=== PATIENT | male | born 1940 | race Caucasian/White ===

== ENCOUNTER 2016-08-15 08:49 | Observation (INO) | payer OTHER ==
[~2016-08-15 08:49] MED LIST: Aspirin E.C. PO; CENTRUM SILVER1 EAC3 PO; CIPRO500 MG PO; CIPROFLOXACIN500 M1 PO; Centrum Silver,Certa PO; DILTIAZEM 24HR240 MG PO; ENDOCET 5-3251 EACH PO; FIBER TABS625 MG PO; FIBERCON625 MG PO; FLOMAX0.4 MG PO; FUROSEMIDE40 MG PO; LIPITOR40 MG PO; NAPROXEN500 MG PO; ONE-A-DAY MEN'1 EAC4 PO; PERCOCET 5/31 TABLET PO; PRADAXA75 MG PO; Protonix PO; SPIRIVA1 INHALATI IH; SYNTHROID125 MCG PO; SYNTHROID137 MCG PO; TOPROL XL25 MG PO; TOPROL XL6.25 MG PO; TYLENOL EXTRA500 MG PO; VITAMIN D32000 UNI1 PO; XARELTO10 MG PO; ZESTRIL,PRINIVIL5 MG PO; ZESTRIL2.5 MG PO; ZOFRAN4 MG PO; [UNRECOGNIZED DRUG - OTHER] IV; [UNRECOGNIZED DRUG - OTHER] PO
[2016-08-15 09:27] LABS: HEMATOCRIT 50.9 % (38.0-50.0); MCH 31.6 PG (29.0-34.0); MCHC 34.2 G/DL (30.0-36.0); MCV 92.5 FL (86-99); MEAN PLAT.VOLUME 9.9 uM^3 (9.0-12.4); PLATELET COUNT 197 K/uL (156-360); RBC DIS.WIDTH-CV 14.5 % (11.8-14.6); RBC DIS.WIDTH-SD 49.4 % (39-53)
[2016-08-15 09:38] LABS: INTER. NORMALIZED RATIO 1.1; PROTHROMBIN TIME 10.9 (9.2-11.2)
[2016-08-15 13:52] VITALS: BP 148/72
[2016-08-15 16:03] VITALS: BP 118/58
[2016-08-16 04:02] VITALS: BP 134/60
[2016-08-16 05:34] LABS: HEMATOCRIT 47.3 % (38.0-50.0); MCH 30.8 PG (29.0-34.0); MCV 93.5 FL (86-99); MEAN PLAT.VOLUME 9.8 uM^3 (9.0-12.4); PLATELET COUNT 172 K/uL (156-360); RBC DIS.WIDTH-CV 14.5 % (11.8-14.6); RBC DIS.WIDTH-SD 50.4 % (39-53); RED BLOOD COUNT 5.06 M/uL (4.00-5.50); WHITE BLOOD COUNT 7.4 K/uL (4.1-10.2)
[2016-08-16 07:35] VITALS: BP 110/56
[2016-08-16 16:00] VITALS: BP 147/67
== END 2016-08-16 17:26 | disposition home or self-care (01) ==
LOC: OPR 08:49 → EDSTATUS 09:00 → OPR 09:00 → 2SOUTH 12:03 → 5WEST 12:03 → 2SOUTH 12:03 → 5WEST 13:31
PROVIDERS: Internal Medicine; Radiology Diagnostic Radiology
PROC: 0BBF3ZX Excision of Right Lower Lung Lobe, Percutaneous Approach, Diagnostic (ICD-10-PCS; principal; 2016-08-15)
PROC: BB241ZZ Computerized Tomography (CT Scan) of Bilateral Lungs using Low Osmolar Contrast (ICD-10-PCS; principal; 2016-08-15)
PROC: 0W9900Z Drainage of Right Pleural Cavity with Drainage Device, Open Approach (ICD-10-PCS; principal; 2016-08-15)
DX: J95.811 Postprocedural pneumothorax (principal); C34.31 Malignant neoplasm of lower lobe, right bronchus or lung; J44.9 Chronic obstructive pulmonary disease, unspecified; I25.10 Atherosclerotic heart disease of native coronary artery without angina pectoris; Z95.5 Presence of coronary angioplasty implant and graft; G47.30 Sleep apnea, unspecified; I10 Essential (primary) hypertension; F17.210 Nicotine dependence, cigarettes, uncomplicated; R04.89 Hemorrhage from other sites in respiratory passages
CPT/HCPCS: 71010; 77012; 85027; 85610; 85730; 88305; 88341 TC; 88342 TC; 94640; 94640 76; 94760; 94799; 99202; C1729; C1769; G0378; J3010

== ENCOUNTER 2016-09-22 09:21 | Day surgery (SDC) | payer OTHER ==
[~2016-09-22] VITALS: Ht 182.9 cm; Wt 101.0 kg
[2016-09-22 10:02] VITALS: BP 133/67
[2016-09-22 10:03] LABS: EOSINOPHIL (%) 1.5 % (0-5); EOSINOPHIL COUNT 0.1 K/uL (0-0.3); HEMATOCRIT 54.1 % (38.0-50.0); IMMATURE GRANULOCYTE (%) 0.4 % (0.0-0.7); INSTRUMENT ABS NEUTROPHIL CT 4.8 K/uL; LYMPHOCYTE COUNT 1.2 K/uL (1.0-2.8); MCH 30.9 PG (29.0-34.0); MCHC 33.1 G/DL (30.0-36.0); MCV 93.4 FL (86-99); MEAN PLAT.VOLUME 9.9 uM^3 (9.0-12.4); MONOCYTE (%) 8.9 % (3-12); MONOCYTE COUNT 0.6 K/uL (0-0.8); NEUTROPHIL (%) 71.6 % (45-76); NEUTROPHIL COUNT 4.8 K/uL (1.8-6.4); PLATELET COUNT 211 K/uL (156-360); RBC DIS.WIDTH-CV 14.2 % (11.8-14.6); RBC DIS.WIDTH-SD 49.1 % (39-53); RED BLOOD COUNT 5.79 M/uL (4.00-5.50); WHITE BLOOD COUNT 6.8 K/uL (4.1-10.2)
[2016-09-22 10:33] LABS: ALKALINE PHOSPHATASE 89 IU/L (3-129); ANION GAP 9 MEQ/L (2-14); CHLORIDE 108 MEQ/L (99-109); GFR ESTIMATE (CALCULATED) > 59 mL/min/; GLUCOSE 97 mg/dL (70-99); POTASSIUM 3.9 MEQ/L (3.7-5.4); SAMPLE HEMOLYSIS CHECK 0; SAMPLE ICTERIC CHECK 0; SAMPLE LIPEMIA CHECK 0; SODIUM 140 MEQ/L (136-147); TOTAL BILIRUBIN 0.7 MG/DL (0.0-1.0); UREA NITROGEN (BUN) 14 mg/dL (9-23)
[2016-09-22 10:41] LABS: INTER. NORMALIZED RATIO 1.1; PROTHROMBIN TIME 11.1 (9.2-11.2)
[2016-09-22] MEDS ORDERED: NORCO 5/3251 TABLET PO (14:41)
[2016-09-22] MEDS ORDERED: COLACE100 MG PO (14:41)
[2016-09-22 15:22] VITALS: BP 161/78
[2016-09-22 16:20] VITALS: BP 147/67
== END 2016-09-22 16:40 | disposition home or self-care (01) ==
LOC: SDC 09:21
PROVIDERS: Thoracic Surgery (Cardiothoracic Vascular Surgery)
PROC: 07B74ZX Excision of Thorax Lymphatic, Percutaneous Endoscopic Approach, Diagnostic (ICD-10-PCS; principal; 2016-09-22)
DX: C34.31 Malignant neoplasm of lower lobe, right bronchus or lung (principal); J44.9 Chronic obstructive pulmonary disease, unspecified; F17.210 Nicotine dependence, cigarettes, uncomplicated; I25.10 Atherosclerotic heart disease of native coronary artery without angina pectoris; Z95.5 Presence of coronary angioplasty implant and graft; I48.91 Unspecified atrial fibrillation; E03.9 Hypothyroidism, unspecified; Z82.49 Family history of ischemic heart disease and other diseases of the circulatory system
CPT/HCPCS: 80053; 85025; 85610; 85730; 86900; 86901; 88305; J0330; J0690; J1100; J2405; J2710; J3010

== ENCOUNTER 2016-09-25 07:22 | Emergency (ER) | payer OTHER ==
[~2016-09-25] VITALS: Ht 188 cm; Wt 102.6 kg
[~2016-09-25 07:22] MED LIST changes: +COLACE100 MG PO; +NORCO 5/3251 TABLET PO
[2016-09-25 08:01] LABS: ADD MIUA? YES; BILIRUBIN NEGATIVE; BLOOD MODERATE; COLOR YELLOW ((YELLOW)); GLUCOSE (STRIP) NEGATIVE; KETONES NEGATIVE; LEUKOCYTES SMALL; NITRITE NEGATIVE; PROTEIN (STRIP) NEGATIVE; SPECIFIC GRAVITY 1.014 (1.000-1.030); UROBILINOGEN 0.2 MG/DL (0.2-1.0)
[2016-09-25 08:22] LABS: BACTERIA RARE /HPF; EPITHELIAL CELLS RARE /HPF; HYALINE CASTS 0-5 /LPF; MUCUS TRACE /LPF; RED BLOOD CELLS TNTC /HPF (0-5); UCUL ADDED? NO; WHITE BLOOD CELLS 20-30 /HPF (0-5)
[2016-09-25 08:58] LABS: EOSINOPHIL (%) 1.7 % (0-5); EOSINOPHIL COUNT 0.1 K/uL (0-0.3); HEMATOCRIT 46.3 % (38.0-50.0); IMMATURE GRANULOCYTE (%) 0.6 % (0.0-0.7); IMMATURE GRANULOCYTE COUNT 0.1 K/uL; INSTRUMENT ABS NEUTROPHIL CT 6.4 K/uL; LYMPHOCYTE COUNT 0.9 K/uL (1.0-2.8); MCHC 33.9 G/DL (30.0-36.0); MCV 91.5 FL (86-99); MEAN PLAT.VOLUME 10.4 uM^3 (9.0-12.4); MONOCYTE (%) 10.4 % (3-12); MONOCYTE COUNT 0.9 K/uL (0-0.8); NEUTROPHIL (%) 76.1 % (45-76); NEUTROPHIL COUNT 6.4 K/uL (1.8-6.4); PLATELET COUNT 173 K/uL (156-360); RBC DIS.WIDTH-CV 13.9 % (11.8-14.6); RBC DIS.WIDTH-SD 46.5 % (39-53); RED BLOOD COUNT 5.06 M/uL (4.00-5.50); WHITE BLOOD COUNT 8.4 K/uL (4.1-10.2)
[2016-09-25 09:04] LABS: CHLORIDE 105 mEq/L (99-109); POTASSIUM 3.5 mEq/L (3.7-5.4); SODIUM 138 mEq/L (136-147)
[2016-09-25 09:06] LABS: GLUCOSE 97 mg/dL (70-99)
[2016-09-25 09:07] LABS: ANION GAP 10 MEQ/L (2-14)
[2016-09-25 09:10] LABS: GFR ESTIMATE (CALCULATED) > 59 mL/min/
[2016-09-25 09:11] LABS: UREA NITROGEN (BUN) 12 mg/dL (9-23)
[2016-09-25] MEDS ORDERED: CIPRO500 MG PO (10:17)
[2016-09-25 11:54] VITALS: BP 114/72
== END 2016-09-25 11:55 | disposition home or self-care (01) ==
LOC: EME 07:22
PROVIDERS: Emergency Medicine
PROC: 0T9B70Z Drainage of Bladder with Drainage Device, Via Natural or Artificial Opening (ICD-10-PCS; principal; 2016-09-25)
DX: R33.9 Retention of urine, unspecified (principal); N39.0 Urinary tract infection, site not specified; Z87.442 Personal history of urinary calculi; I25.2 Old myocardial infarction; Z90.49 Acquired absence of other specified parts of digestive tract; F17.200 Nicotine dependence, unspecified, uncomplicated
CPT/HCPCS: 80048; 81003; 85025; 99281; 99284

== ENCOUNTER 2017-04-23 12:06 | Emergency (ER) | payer OTHER ==
[~2017-04-23] VITALS: Ht 182.9 cm; Wt 91.3 kg
[2017-04-23 12:02] LABS: TYPE OF FLUID THORACENTESIS
[~2017-04-23 12:06] MED LIST changes: +BREO ELLIPTA I1 EACH IH; +DOCUSATE SODIU100 MG PO; +MUCINEX600 MG PO; +NICOTINE PATCH1 EAC2 TD; +SPIRIVA RESPIMAT4 GM IH; +TAMSULOSIN HCL0.4 MG PO; +WELLBUTRIN SR150 MG PO; +XOPENEX0.31 MG/3 IH
[2017-04-23 12:18] LABS: APPEARANCE SL. HAZY-YELLOW; BODY FLUID RBC'S 2000 /MM^3 (0-100); BODY FLUID WBC'S 807 /MM^3 (0-500)
[2017-04-23 13:00] LABS: BODY FLUID EOSINOPHILS 0 % (0-25); MONONUCLEAR WBC'S 100 %; POLYNUCLEAR WBC'S 0 % (0-25)
[2017-04-23 13:06] LABS: HEMATOCRIT 45.2 % (38.0-50.0); HEMOGLOBIN 14.2 G/DL (12.5-16.6); MCH 25.6 PG (29.0-34.0); MCHC 31.4 G/DL (30.0-36.0); MCV 81.4 FL (86-99); PLATELET COUNT 295 K/uL (156-360); RBC DIS.WIDTH-CV 19.5 % (11.8-14.6); RBC DIS.WIDTH-SD 55.8 % (39-53); RED BLOOD COUNT 5.55 M/uL (4.00-5.50); WHITE BLOOD COUNT 6.6 K/uL (4.1-10.2)
[2017-04-23 13:18] LABS: CHLORIDE 109 mEq/L (99-109); POTASSIUM 3.9 mEq/L (3.7-5.4); SODIUM 143 mEq/L (136-147)
[2017-04-23 13:19] LABS: GLUCOSE 86 mg/dL (70-99)
[2017-04-23 13:23] LABS: CREATININE 0.9 mg/dL (0.6-1.3); GFR ESTIMATE (CALCULATED) > 59 mL/min/ (58.99-99999)
[2017-04-23 13:24] LABS: UREA NITROGEN (BUN) 12 mg/dL (9-23)
[2017-04-23 13:27] LABS: BODY FLUID GLUCOSE 65 MG/DL; BODY FLUID LDH 168 IU/L; BODY FLUID PROTEIN 3.1 G/DL
[2017-04-23 13:29] LABS: TROP-I INTERPRETATION NEGATIVE; TROPONIN-I 0.11 ng/mL (0.0-0.30)
[2017-04-23 16:21] LABS: TROP-I INTERPRETATION NEGATIVE; TROPONIN-I 0.12 ng/mL (0.0-0.30)
[2017-04-23 18:08] LABS: ALBUMIN 3.6 g/dL (3.2-4.8)
[2017-04-23 18:13] LABS: TOTAL BILIRUBIN 0.9 mg/dL (0.0-1.0)
[2017-04-23 18:14] LABS: ALKALINE PHOSPHATASE 93 IU/L (3-129)
[2017-04-23 18:17] LABS: ALT (GPT) 22 IU/L (3-49); AST (GOT) 18 IU/L (2-34); DIRECT BILIRUBIN 0.5 mg/dL (0.0-0.3)
[2017-04-23 20:38] VITALS: BP 124/69
== END 2017-04-23 20:40 | disposition home or self-care (01) ==
LOC: EME 12:06
PROVIDERS: Internal Medicine Pulmonary Disease; Physician Assistant Medical
PROC: BB4BZZZ Ultrasonography of Pleura (ICD-10-PCS; principal; 2017-04-23)
PROC: 0W993ZZ Drainage of Right Pleural Cavity, Percutaneous Approach (ICD-10-PCS; principal; 2017-04-23)
DX: J90 Pleural effusion, not elsewhere classified (principal); R09.02 Hypoxemia; Z85.118 Personal history of other malignant neoplasm of bronchus and lung; Z99.81 Dependence on supplemental oxygen; J44.9 Chronic obstructive pulmonary disease, unspecified; I25.2 Old myocardial infarction; Z87.442 Personal history of urinary calculi; Z90.49 Acquired absence of other specified parts of digestive tract; Z95.5 Presence of coronary angioplasty implant and graft; F17.200 Nicotine dependence, unspecified, uncomplicated
CPT/HCPCS: 71046; 71275; 76942; 80048; 80076; 82945; 83615 91; 84157; 84484; 85027; 87040; 87070; 87075; 87116; 87205; 87206; 88108; 88305; 89051; 93005; 99281; 99285; J7040

== ENCOUNTER 2017-05-09 09:01 | Inpatient (IN) | payer OTHER ==
[~2017-05-09] VITALS: Ht 193 cm; Wt 101.2 kg
[2017-05-09 10:03] LABS: BASOPHIL (%) 0.2 % (0-1); EOSINOPHIL (%) 0.1 % (0-5); HEMATOCRIT 41.2 % (38.0-50.0); HEMOGLOBIN 13.5 G/DL (12.5-16.6); IMMATURE GRANULOCYTE (%) 0.6 % (0.0-0.7); LYMPHOCYTE (%) 3.8 % (15-42); LYMPHOCYTE COUNT 0.6 K/uL (1.0-2.8); MCH 25.4 PG (29.0-34.0); MCHC 32.8 G/DL (30.0-36.0); MONOCYTE (%) 3.8 % (3-12); MONOCYTE COUNT 0.7 K/uL (0-0.8); NEUTROPHIL (%) 91.5 % (45-76); NEUTROPHIL COUNT 15.6 K/uL (1.8-6.4); PLATELET COUNT 218 K/uL (156-360); RBC DIS.WIDTH-SD 54.6 % (39-53); RED BLOOD COUNT 5.32 M/uL (4.00-5.50)
[2017-05-09 10:04] LABS: MCV 77.4 FL (86-99)
[2017-05-09 10:09] LABS: ALBUMIN 2.9 g/dL (3.2-4.8); CHLORIDE 106 mEq/L (99-109)
[2017-05-09 10:10] LABS: POTASSIUM 4.1 mEq/L (3.7-5.4); SODIUM 138 mEq/L (136-147)
[2017-05-09 10:12] LABS: GLUCOSE 116 mg/dL (70-99); TOTAL PROTEIN 6.5 g/dL (6.4-8.3)
[2017-05-09 10:15] LABS: ALKALINE PHOSPHATASE 114 IU/L (3-129); CREATININE 1.4 mg/dL (0.6-1.3); GFR ESTIMATE (CALCULATED) 52 mL/min/ (58.99-99999)
[2017-05-09 10:17] LABS: AST (GOT) 26 IU/L (2-34); UREA NITROGEN (BUN) 25 mg/dL (9-23)
[2017-05-09 10:18] LABS: ALT (GPT) 39 IU/L (3-49)
[2017-05-09 10:22] LABS: TROP-I INTERPRETATION NEGATIVE; TROPONIN-I 0.12 ng/mL (0.0-0.30)
[2017-05-09 13:22] LABS: APPEARANCE CLOUDY ((CLEAR)); BILIRUBIN NEGATIVE; BLOOD SMALL; COLOR AMBER ((YELLOW)); GLUCOSE (STRIP) 50; KETONES 5; LEUKOCYTES NEGATIVE; NITRITE POSITIVE; PROTEIN (STRIP) 100; SPECIFIC GRAVITY 1.021 (1.000-1.030)
[2017-05-09 13:52] LABS: BACTERIA RARE /HPF; EPITHELIAL CELLS NONE SEEN /HPF; MUCUS TRACE /LPF; UCUL ADDED? YES; WHITE BLOOD CELLS TNTC /HPF (0-5)
[2017-05-09 19:21] LABS: TROP-I INTERPRETATION NEGATIVE; TROPONIN-I 0.13 ng/mL (0.0-0.30)
[2017-05-09 19:42] VITALS: BP 104/57
[2017-05-10 00:27] VITALS: BP 119/69
[2017-05-10 02:58] LABS: TROP-I INTERPRETATION NEGATIVE; TROPONIN-I 0.11 ng/mL (0.0-0.30)
[2017-05-10 03:50] VITALS: BP 117/69
[2017-05-10 06:54] LABS: CHLORIDE 107 MEQ/L (99-109); CREATININE 1.2 MG/DL (0.6-1.3); GFR ESTIMATE (CALCULATED) > 59 mL/min/ (58.99-99999); POTASSIUM 4.7 MEQ/L (3.7-5.4); SODIUM 138 MEQ/L (136-147); UREA NITROGEN (BUN) 28 mg/dL (9-23)
[2017-05-10 06:55] LABS: GLUCOSE 201 mg/dL (70-99)
[2017-05-10 07:05] LABS: HEMATOCRIT 39.6 % (38.0-50.0); HEMOGLOBIN 12.5 G/DL (12.5-16.6); MCH 25.3 PG (29.0-34.0); MCHC 31.6 G/DL (30.0-36.0); RBC DIS.WIDTH-CV 20.2 % (11.8-14.6); RBC DIS.WIDTH-SD 57.5 % (39-53); RED BLOOD COUNT 4.95 M/uL (4.00-5.50); WHITE BLOOD COUNT 13.1 K/uL (4.1-10.2)
[2017-05-10 08:00] LABS: PLAT.SUFFICIENCY ADEQUATE; PLATELET COUNT 225 K/uL (156-360)
[2017-05-10 08:21] VITALS: BP 120/86
[2017-05-10 12:21] VITALS: BP 117/58
[2017-05-10 17:10] VITALS: BP 120/65
[2017-05-10 19:45] VITALS: BP 125/60
[2017-05-11] VITALS (7 sets, daily range): BP systolic 102–136; BP diastolic 53–72
[2017-05-11 05:21] LABS: HEMATOCRIT 40.3 % (38.0-50.0); HEMOGLOBIN 12.3 G/DL (12.5-16.6); MCH 24.4 PG (29.0-34.0); MCHC 30.5 G/DL (30.0-36.0); MCV 79.8 FL (86-99); PLATELET COUNT 240 K/uL (156-360); RBC DIS.WIDTH-CV 19.9 % (11.8-14.6); RBC DIS.WIDTH-SD 56.6 % (39-53); RED BLOOD COUNT 5.05 M/uL (4.00-5.50); WHITE BLOOD COUNT 20.7 K/uL (4.1-10.2)
[2017-05-11 05:54] LABS: CHLORIDE 105 MEQ/L (99-109); CREATININE 0.9 MG/DL (0.6-1.3); GFR ESTIMATE (CALCULATED) > 59 mL/min/ (58.99-99999); GLUCOSE 218 mg/dL (70-99); POTASSIUM 4.4 MEQ/L (3.7-5.4); SODIUM 138 MEQ/L (136-147); UREA NITROGEN (BUN) 27 mg/dL (9-23)
[2017-05-12 04:31] VITALS: BP 101/54
[2017-05-12 07:05] LABS: HEMATOCRIT 40.1 % (38.0-50.0); HEMOGLOBIN 12.6 G/DL (12.5-16.6); MCH 25.5 PG (29.0-34.0); MCHC 31.4 G/DL (30.0-36.0); PLATELET COUNT 241 K/uL (156-360); RBC DIS.WIDTH-CV 20.7 % (11.8-14.6); RBC DIS.WIDTH-SD 58.8 % (39-53); RED BLOOD COUNT 4.95 M/uL (4.00-5.50); WHITE BLOOD COUNT 17.6 K/uL (4.1-10.2)
[2017-05-12 07:24] LABS: CHLORIDE 105 MEQ/L (99-109); GFR ESTIMATE (CALCULATED) > 59 mL/min/ (58.99-99999); GLUCOSE 141 mg/dL (70-99); POTASSIUM 4.9 MEQ/L (3.7-5.4); SODIUM 137 MEQ/L (136-147); UREA NITROGEN (BUN) 32 mg/dL (9-23)
[2017-05-12 07:51] LABS: BASOPHIL (%) 0.1 % (0-1); EOSINOPHIL (%) 0 % (0-5); IMMATURE GRANULOCYTE (%) 0.8 % (0.0-0.7); LYMPHOCYTE (%) 1.8 % (15-42); LYMPHOCYTE COUNT 0.3 K/uL (1.0-2.8); MONOCYTE (%) 2.7 % (3-12); MONOCYTE COUNT 0.5 K/uL (0-0.8); NEUTROPHIL (%) 94.6 % (45-76); NEUTROPHIL COUNT 16.7 K/uL (1.8-6.4)
[2017-05-12 08:46] VITALS: BP 106/58
[2017-05-12] MEDS ORDERED: AUGMENTIN875 MG PO (11:15)
[2017-05-12] MEDS ORDERED: PREDNISONE20 MG PO (11:16)
[2017-05-12] MEDS ORDERED: POTASSIUM CHLO10 ME3 PO (11:29)
[2017-05-12] MEDS ORDERED: LASIX20 MG PO (11:29)
[2017-05-12 11:45] VITALS: BP 101/55
== END 2017-05-12 15:03 | disposition home health service (06) | DRG 190 ==
LOC: EME 09:01 → 5SOUTH 12:38 → EDOF 12:38 → ENRESERV 12:46 → 5SOUTH 16:18 → ENPENDDIS 05-12 11:33 → 5SOUTH 05-12 15:03
PROVIDERS: Emergency Medicine; Internal Medicine; Physician Assistant; Physician Assistant Medical
DX: J44.1 Chronic obstructive pulmonary disease with (acute) exacerbation (principal); J96.01 Acute respiratory failure with hypoxia; N17.9 Acute kidney failure, unspecified; I11.0 Hypertensive heart disease with heart failure; I50.810 Right heart failure, unspecified; I36.1 Nonrheumatic tricuspid (valve) insufficiency; I27.20 Pulmonary hypertension, unspecified; G47.33 Obstructive sleep apnea (adult) (pediatric); Z99.81 Dependence on supplemental oxygen; R73.09 Other abnormal glucose; T38.0X5A Adverse effect of glucocorticoids and synthetic analogues, initial encounter; R60.0 Localized edema; I48.91 Unspecified atrial fibrillation; I25.10 Atherosclerotic heart disease of native coronary artery without angina pectoris; R35.0 Frequency of micturition; R30.0 Dysuria; F17.210 Nicotine dependence, cigarettes, uncomplicated; E03.9 Hypothyroidism, unspecified; I25.2 Old myocardial infarction; Z85.118 Personal history of other malignant neoplasm of bronchus and lung; Z90.2 Acquired absence of lung [part of]; Z95.5 Presence of coronary angioplasty implant and graft; Z87.442 Personal history of urinary calculi
CPT/HCPCS: 71045; 71250; 80048; 80053; 81003; 82948; 83880; 84484; 85025; 85027; 87070; 87086; 87205; 90686; 93005; 93306; 94640; 94640 76; 94644; 94760; 94799; 99202; 99281; 99285; J1650; J1815; J2930; J7030; J7512